=== PATIENT | female | born 1960 | race Caucasian/White ===

== ENCOUNTER → 2016-03-30 | Outpatient (REF) | payer BC ==
[2016-03-30 12:38] LABS: AMYLASE 94 U/L (25-115)
[2016-03-30 12:49] LABS: CONTROL LINE HPYORI INT CTR LINE PRESENT
== END ==
LOC: M LAB REF 11:42
PROVIDERS: ATTEND Nurse Practitioner Family
DX: R10.12 Left upper quadrant pain (principal)

== ENCOUNTER → 2016-08-12 | Outpatient (REF) | payer BC ==
[~2016-08-12] MED LIST: CLAR10CA3 PO; CLON0.5T PO; HYDR12CA PO; LINZ290C PO; MULT1TAB10 PO; OMEP20CA3 PO; SUDA30TA PO; SYNT137T7 PO; VITA100072 PO; WELLTAB38 PO
[2016-08-12 14:00] LABS: PERCENT SATURATION 20.9 % (13.2-37.4)
[2016-08-14 10:53] LABS: PRETREATED FOLATE FOR RBCFOL 7.8 NG/ML
== END ==
LOC: M LAB REF 12:40
PROVIDERS: ATTEND Nurse Practitioner Adult Health
DX: Z98.84 Bariatric surgery status (principal)

== ENCOUNTER → 2016-08-20 | Day surgery (SDC) | payer BC ==
[~2016-08-20] VITALS: Ht 172.7 cm; Wt 93.0 kg
[~2016-08-20] MED LIST changes: +ACETYLCHOLINE OPHTH SOLN 1% 2ML (MIOCHOL-E) As Ordered ONE; +BALANCED SALT IRRIGATION SOLUTION 500ML BAG (FOR OR EYE MACHINE) As Ordered ONE; +CEFUROXIME 1MG/0.1ML INTRACAMERAL INJ As Ordered ONE; +HEALON DUET (HEALON 10MG/ML 0.55ML & HEALON ENDOCOAT 30MG/ML 0.85ML) As Ordered ONE; +LIDOCAINE 0.75%/EPINEPHRINE 0.025% IN BSS 1ML SYR INTRACAMERAL (OR ONLY) As Ordered ONE; +LIDOCAINE 4% INJ 5 ML AMP As Ordered ONE; +LR 500 ML IV SCH; +MIDAZOLAM INJ 2 MG/2 ML VIAL (J2250) As Ordered ONE; +OFLOXACIN 0.3 % (OCUFLOX) OPTH SOL 5ML OD ONE; +PHENYLEPHRINE 2.5% OPHTH SOL 2ML OD ONE; +POVIDONE-IODINE 5% OPHTH PREP SOL 30ML As Ordered ONE; +PROPARACAINE 0.5% OPHTH SOL 15ML OD ONE; +TOBRADEX OPHTH OINT 3.5 GM As Ordered ONE; +TROPICAMIDE 1% OPHTH SOLN 2ML OD ONE; +TRYPAN BLUE 0.06 % 2.25 ML OPHTH SYR (VISIONBLUE) As Ordered ONE
[2016-08-20 14:50] VITALS: BP 128/82
--- NOTE | 2016-08-20 19:15 | RO ---
DATE OF PROCEDURE: 08/20/2016 PREOPERATIVE DIAGNOSIS: 1. Visually significant nuclear sclerotic cataract right eye. 2. Macular chorioretinal scar, right eye POSTOPERATIVE DIAGNOSIS: Visually significant nuclear sclerotic cataract right eye. PROCEDURE: Cataract extraction with use of phacoemulsification, and placement of intraocular lens, AU00T0 18.0D , right eye. SURGEON: Parish Walter DO LOCK OPERATOR: ANESTHESIA: Local with monitored anesthesia care (MAC). COMPLICATIONS: None. POSTOPERATIVE CONDITION: Stable. INDICATION FOR SURGERY: Blurred vision right eye affecting patient's activities of daily living. DESCRIPTION OF PROCEDURE: The patient was seen in the preoperative area and properly identified. The correct operative eye was identified and marked. Attention was turned to that eye. The patient received topical antibiotics in the preoperative area. The patient then received topical dilating drops consisting of Tropicamide and Phenylephrine. The patient was then transferred to the operating room. The correct side was re-identified. The patient received topical anesthetics and antibiotics on the surface of the eye. The eye was prepped and draped in a sterile fashion. The upper and lower eyelids were isolated with Tegaderm tape, and the lids were held open with an adjustable speculum. Using a sideport blade, a paracentesis incision was made. Trypan blue was placed into the anterior chamber. Intraocular preservative-free lidocaine was then injected into the anterior chamber. Viscoelastic was then injected into the anterior chamber through the paracentesis. Using a 2.65 mm sharp-tipped keratome, the anterior chamber was entered via a temporal clear corneal incision. A continuous curvilinear capsulorrhexis was created with the aid of a 26g cystotome and utrata forceps. Hydrodissection was performed with balanced salt solution (BSS) on a blunt cannula until the nucleus was freely mobile. The crystalline lens was phacoemulsified and aspirated. Additional cohesive viscoelastic was placed into the capsular bag to deepen it. A AU00T0 18.0 lens D was placed into the capsular bag and confirmed by visualizing the continuous curvilinear capsulorrhexis. Additional irrigation and aspiration was used to remove cortical material and remaining viscoelastic. The clear corneal incision was hydrated with BSS on a blunt cannula. The lens was well positioned. The incisions were then tested for leaks, Resure sealant was placed. A single 10-0 nylon suture was placed in the temporal incision. The incision was re-tested and found to be watertight. The eye was then palpated for appropriate pressure and adjusted accordingly with BSS. The eyelid speculum was carefully removed. A shield was then secured over the eye. The patient tolerated the procedure well and was discharged to the recovery unit in a stable condition. JERRY
== END | disposition home or self-care (01) ==
LOC: M SDC 10:44
PROVIDERS: ATTEND Ophthalmology
DX: H25.11 Age-related nuclear cataract, right eye (principal); E03.9 Hypothyroidism, unspecified; K58.1 Irritable bowel syndrome with constipation; K25.9 Gastric ulcer, unspecified as acute or chronic, without hemorrhage or perforation; F41.9 Anxiety disorder, unspecified; J45.909 Unspecified asthma, uncomplicated; Z79.899 Other long term (current) drug therapy; Z86.2 Personal history of diseases of the blood and blood-forming organs and certain disorders involving the immune mechanism; Z78.0 Asymptomatic menopausal state; Z98.84 Bariatric surgery status
CPT/HCPCS: 66984; J2250